=== PATIENT | male | born 1950 | race American Indian/Alaskan Native ===

== ENCOUNTER 2017-06-28 20:46 | Emergency (ER) | payer BC, MEDICARE ==
[2017-06-28 21:06] VITALS: BP 188/114
--- NOTE | 2017-06-28 22:04 | Cat Scan Report ---
FINAL REPORT PROCEDURE: CT HEAD/BRAIN WO CON TECHNIQUE: Computerized tomography of the head was performed without contrast material. HISTORY: head injury COMPARISON: No prior studies are available for comparison. FINDINGS: Skull and scalp: Normal. Paranasal sinuses: Normal. Ventricles and subarachnoid spaces: Normal. Cerebrum: An old lacunar infarct is noted in the right basal ganglia. There is mild degree bilateral periventricular nonspecific white matter hypodensity most likely representing chronic microangiopathy. An acute intra-axial or extra-axial hemorrhage is not identified. There is no mass effect.. Cerebellum and brainstem: No evidence of hemorrhage, acute infarction or mass. Vasculature: Normal. Comments: None. IMPRESSION: No acute intracranial abnormality Old lacunar infarct right basal ganglia
--- NOTE | 2017-06-28 22:09 | Cat Scan Report ---
FINAL REPORT PROCEDURE: CT FACIAL BONES WO CON TECHNIQUE: Computerized tomography of the facial bones and soft tissues with axial and coronal sections performed from the cranial aspect of the frontal sinuses to the caudal portion of the mandible without contrast material. HISTORY: head injury COMPARISON: No prior studies are available for comparison. FINDINGS: Bones: No significant abnormality. Paranasal sinuses: Clear. Soft tissues: No significant abnormality. Other: Degenerative changes are noted involving the cervical spine.. IMPRESSION: No acute abnormality Cervical spondylosis
[2017-06-29] MEDS ORDERED: ULTRAM PO ONE (00:54)
--- NOTE | 2017-06-29 00:58 | Emergency Department Report ---
- General Chief Complaint: Wound/Laceration Stated Complaint: RIGHT EYE INJURY Time Seen by Provider: 06/29/17 00:53 Source: patient Mode of arrival: Ambulatory Limitations: No Limitations - History of Present Illness Initial Comments: 67 y/o -[place] male comes in after running into a pole while playing a softball and has a laceration to his right eye from a metal pole. Patient denies any loss of consciousness denies any headache. He reports [facility]. Patient reports no past medical history currently has no medication and has no known drug allergies. -: This evening Location: face (right eye) Place: outdoors Patient Tetanus UTD: Yes (6 months ago from the [facility]) Context: sharp object use Associated Symptoms: pain - Related Data Allergies Allergy/AdvReac Type Severity Reaction Status Date / Time No Known Allergies Allergy Unverified 06/28/17 21:12 ED Review of Systems ROS: Stated complaint: RIGHT EYE INJURY Other details as noted in HPI Constitutional: denies: chills, fever Eyes: denies: eye pain, eye discharge, vision change ENT: denies: ear pain, throat pain Respiratory: denies: cough, shortness of breath, wheezing Cardiovascular: denies: chest pain, palpitations Endocrine: no symptoms reported Gastrointestinal: denies: abdominal pain, nausea, diarrhea Genitourinary: denies: urgency, dysuria Musculoskeletal: denies: back pain, joint swelling, arthralgia Skin: other (cut to right eye). denies: rash, lesions Neurological: denies: headache, weakness, paresthesias Psychiatric: denies: anxiety, depression Hematological/Lymphatic: denies: easy bleeding, easy bruising ED Past Medical Hx - Past Medical History Previous Medical History?: No - Surgical History Past Surgical History?: No - Social History Smoking Status: Never Smoker Substance Use Type: None ED Physical Exam - General Limitations: No Limitations General appearance: alert, in no apparent distress - Head Head exam: Present: atraumatic, normocephalic - Eye Eye exam: Present: normal appearance, PERRL, EOMI, periorbital swelling, periorbital tenderness, other (ecchymosis and swelling to right eye with laceration approximately 2 cm) - ENT ENT exam: Present: mucous membranes moist - Neck Neck exam: Present: normal inspection - Respiratory Respiratory exam: Present: normal lung sounds bilaterally. Absent: respiratory distress - Cardiovascular Cardiovascular Exam: Present: regular rate, normal rhythm. Absent: systolic murmur, diastolic murmur, rubs, gallop - GI/Abdominal GI/Abdominal exam: Present: soft, normal bowel sounds - Rectal Rectal exam: Present: deferred - Extremities Exam Extremities exam: Present: normal inspection - Back Exam Back exam: Present: normal inspection - Neurological Exam Neurological exam: Present: alert, oriented X3 - Psychiatric Psychiatric exam: Present: normal affect, normal mood - Skin Skin exam: Present: warm, dry, intact, normal color, other (laceration to right lateral eye near the eyebrow approximately 2 cm active bleeding able to control) . Absent: rash ED Course Vital Signs 06/28/17 21:00 Temperature 98.5 F Pulse Rate 48 L Respiratory 17 Rate Blood Pressure 188/114 O2 Sat by Pulse 99 Oximetry - Laceration /Wound Repair Right Eye Wound Location: head (right eye lateral near the corner up to the eyebrow) Wound Length (cm): 2 Wound Explored: no foreign body removed Irrigated w/ Saline (ccs): 30 Betadine Prep?: Yes Anesthesia: 1% Lidocaine Volume Anesthetic (ccs): 2 Wound Debrided: minimal Wound Repaired With: sutures Suture Size/Type: 4:0 Number of Sutures: 5 Layer Closure?: No Sterile Dressing Applied?: Yes Progress: Patient tolerated procedure well. ED Medical Decision Making - Radiology Data Radiology results: report reviewed, image reviewed FINAL REPORT PROCEDURE: CT FACIAL BONES WO CON TECHNIQUE: Computerized tomography of the facial bones and soft tissues with axial and coronal sections performed from the cranial aspect of the frontal sinuses to the caudal portion of the mandible without contrast material. HISTORY: head injury COMPARISON: No prior studies are available for comparison. FINDINGS: Bones: No significant abnormality. Paranasal sinuses: Clear. Soft tissues: No significant abnormality. Other: Degenerative changes are noted involving the cervical spine.. IMPRESSION: No acute abnormality Cervical spondylosis Transcribed By: [facility] Dictated By: BON WALTER Electronically Authenticated By: BON WALTER Signed Date/Time: 06/28/172202 DD/ 02 TD/TT: 06/28/172202 FINDINGS: Skull and scalp: Normal. Paranasal sinuses: Normal. Ventricles and subarachnoid spaces: Normal. Cerebrum: An old lacunar infarct is noted in the right basal ganglia. There is mild degree bilateral periventricular nonspecific white matter hypodensity most likely representing chronic microangiopathy. An acute intra-axial or extra-axial hemorrhage is not identified. There is no mass effect.. Cerebellum and brainstem: No evidence of hemorrhage, acute infarction or mass. Vasculature: Normal. Comments: None. IMPRESSION: No acute intracranial abnormality Old lacunar infarct right basal ganglia Transcribed By: [facility] Dictated By: BON WALTER Electronically Authenticated By: BON WALTER Signed Date/Time: 06/28/172158 DD/ 58 TD/TT: 06/28/172158 Critical care attestation.: If time is entered above; I have spent that time in minutes in the direct care of this critically ill patient, excluding procedure time. ED Disposition Clinical Impression: Laceration of eye region Qualifiers: Encounter type: initial encounter Laterality: right Qualified Code(s): S01.111A - Laceration without foreign body of right eyelid and periocular area, initial encounter Black eye of right side Qualifiers: Encounter type: initial encounter Qualified Code(s): S00.11XA - Contusion of right eyelid and periocular area, initial encounter Disposition: DC-01 TO HOME OR SELFCARE Is pt being admited?: No Does the pt Need Aspirin: No Condition: Stable Instructions: Suture Care (ED), Laceration (ED) Additional Instructions: Please keep wound clean and dry. He can apply triple antibiotic to the sutures. Please return back in 7 days to have sutures removed. He can take Tylenol or Motrin for pain management. If symptoms persist or gets worse please follow-up in the emergency room. Referrals: [facility] [Other] - 3-5 Days Forms: Work/School Release Form(ED)
== END 2017-06-29 01:40 | disposition home or self-care (01) ==
LOC: ED 20:46
DX: S01.111A Laceration without foreign body of right eyelid and periocular area, initial encounter (principal); W26.8XXA Contact with other sharp object(s), not elsewhere classified, initial encounter; Y93.64 Activity, baseball; Y99.8 Other external cause status; Y92.89 Other specified places as the place of occurrence of the external cause
CPT/HCPCS: 70450; 70486

== ENCOUNTER 2017-07-07 12:11 | Emergency (ER) | payer MEDICARE ==
--- NOTE | 2017-07-07 13:12 | Emergency Department Report ---
Suture/Staple Removal - HPI Chief Complaint: Laceration/Recheck/Suture Stated Complaint: SUTURE REMOVAL Time Seen by Provider: 07/07/17 13:04 When Sutures or Ernesto Placed: 5-7 Days Ago Wound Location: right lateral eye below eyebrow ED Review of Systems ROS: Stated complaint: SUTURE REMOVAL Other details as noted in HPI Constitutional: denies: chills, fever Eyes: denies: eye pain, eye discharge, vision change Respiratory: denies: cough, shortness of breath, wheezing Cardiovascular: denies: chest pain, palpitations Skin: lesions (laceration with sutures to right lateral eye). denies: rash Neurological: denies: headache, weakness, paresthesias Psychiatric: denies: anxiety, depression ED Past Medical Hx - Past Medical History Hx Hypertension: Yes - Surgical History Past Surgical History?: No - Social History Smoking Status: Never Smoker Substance Use Type: None Suture Removal Exam - Exam General: Vital signs noted. No distress. Alert and acting appropriately. Wound: No Pathologic Erythema, No Tenderness, No Drainage, No Pus, No Wound Dehiscence Other Systems: All other systems reviewed and are unremarkable. ED Course Vital Signs 07/07/17 12:13 Temperature 98.1 F Pulse Rate 56 L Respiratory 18 Rate Blood Pressure 180/101 O2 Sat by Pulse 96 Oximetry ED Recheck MDM - Differential Diagnosis Wound Recheck, Suture/Staple Removal - Medical Decision Making This is a 67 y.o. male presents for suture removal 7 days post instal. Patient examined by me. Patient is non-toxic appearing and stable. Sutures removed by diabetes solutions specialist. Elevated BP. History of HTN. Currently taking lisinopril daily. Given clonidine 0.1 mg po once in ER. BP trending down but diastolic remains elevated. Patient reports white coat syndrome. Instructed to keep a BP log for 2 weeks and f/u with PCP. Instructed to apply triple antibiotic cream to wound twice a day to aid in healing. Discharged home. Discussed ER care plan with patient. Patient agreed with plan. F/U with PCP. Critical care attestation.: If time is entered above; I have spent that time in minutes in the direct care of this critically ill patient, excluding procedure time. ED Disposition Clinical Impression: Visit for suture removal, Elevated blood pressure reading with diagnosis of hypertension Laceration of eye region Qualifiers: Encounter type: subsequent encounter Laterality: right Qualified Code(s): S01.111D - Laceration without foreign body of right eyelid and periocular area, subsequent encounter Disposition: DC-01 TO HOME OR SELFCARE Is pt being admited?: No Does the pt Need Aspirin: No Condition: Stable Instructions: Suture Removal (ED), Hypertension (ED) Additional Instructions: Apply triple antibiotic ointment to wound twice a day to compounder helper in healing process. Keep wound cleaned with soap and water and leave open to air. Keep a blood pressure log for 2 weeks. Record readings in the morning and in the afternoon. Take blood pressure log to primary care provider for review and modification of medication. Follow up with primary care provider in 2-3 days. Referrals: [facility] [Outside] - 3-5 Days [facility] [Outside] - 3-5 Days Time of Disposition: 13:12 Print Language: ICELANDIC
[2017-07-07] MEDS ORDERED: CATAPRES PO ONE (13:13)
[2017-07-07 14:04] VITALS: BP 160/102
== END 2017-07-07 14:20 | disposition home or self-care (01) ==
LOC: ED 12:11
DX: Z48.01 Encounter for change or removal of surgical wound dressing (principal); I10 Essential (primary) hypertension